=== PATIENT | male | born 1950 | race Caucasian/White ===

== ENCOUNTER 2017-11-02 21:06 | Emergency (ER) | payer MEDICARE, MEDICAID ==
[~2017-11-02] VITALS: Ht 157.5 cm; Wt 63.5 kg
[2017-11-02] MEDS ORDERED: METFORMIN HCL500 MG PO (21:23)
[2017-11-02] MEDS ORDERED: XANAX 0.25 MG0.25 MG PO (21:24)
[2017-11-02] MEDS ORDERED: LISINOPRIL20 MG PO (21:24)
[2017-11-02] MEDS ORDERED: ALBUTEROL2.5 MG/31 INH (21:27)
[2017-11-02] MEDS ORDERED: NORVASC5 MG PO (21:27)
[2017-11-02] MEDS ORDERED: ASPIRIN81 M2 PO (21:27)
[2017-11-02] MEDS ORDERED: PRAVACHOL40 MG PO (21:28)
[2017-11-02] MEDS ORDERED: AMARYL2 MG PO (21:28)
[2017-11-02] MEDS ORDERED: PROAIR HFA8.5 GM INH (21:52)
[2017-11-02] MEDS ORDERED: AUGMENTIN 875-1 EACH PO (21:52)
[2017-11-02] MEDS ORDERED: PREDNISONE50 MG PO (21:52)
[2017-11-02 22:00] VITALS: BP 123/80
== END 2017-11-02 22:21 | disposition home or self-care (01) ==
LOC: M.ERS 21:06
DX: R05 Cough (principal); I10 Essential (primary) hypertension; E11.9 Type 2 diabetes mellitus without complications; E78.00 Pure hypercholesterolemia, unspecified; J45.909 Unspecified asthma, uncomplicated; Z86.73 Personal history of transient ischemic attack (TIA), and cerebral infarction without residual deficits; Z87.891 Personal history of nicotine dependence

== ENCOUNTER 2018-09-20 09:41 | Emergency (ER) | payer MEDICARE, MEDICAID ==
[~2018-09-20] VITALS: Ht 162.6 cm; Wt 56.7 kg
[~2018-09-20 09:41] MED LIST: ALBUTEROL2.5 MG/31 INH; AMARYL2 MG PO; ASPIRIN81 M2 PO; AUGMENTIN 875-1 EACH PO; LISINOPRIL20 MG PO; METFORMIN HCL500 MG PO; NORVASC5 MG PO; PRAVACHOL40 MG PO; PREDNISONE50 MG PO; PROAIR HFA8.5 GM INH; XANAX 0.25 MG0.25 MG PO
[2018-09-20] MEDS ORDERED: ATORVASTATIN CA40 MG PO (09:59)
[2018-09-20] MEDS ORDERED: LISINOPRIL10 MG PO (09:59)
[2018-09-20] MEDS ORDERED: XANAX 0.5 MG0.5 MG PO (10:01)
[2018-09-20 11:23] VITALS: BP 185/70
[2018-09-20] MEDS ORDERED: PREDNISONE 20 M20 M1 PO (11:25)
== END 2018-09-20 11:40 | disposition home or self-care (01) ==
LOC: M.ERS 09:41
DX: T78.3XXA Angioneurotic edema, initial encounter (principal); I10 Essential (primary) hypertension; E11.9 Type 2 diabetes mellitus without complications; E78.00 Pure hypercholesterolemia, unspecified; J45.909 Unspecified asthma, uncomplicated; Z87.891 Personal history of nicotine dependence; Z86.73 Personal history of transient ischemic attack (TIA), and cerebral infarction without residual deficits